=== PATIENT | female | born 1985 | race Caucasian/White ===

== ENCOUNTER 2019-07-31 11:44 | Emergency (ER) | payer BC ==
[~2019-07-31] VITALS: Ht 170.2 cm; Wt 99.8 kg
[2019-07-31 12:46] LABS: Source, Urine Clean Catch
[2019-07-31 12:51] LABS: Bilirubin, Urine Neg (Neg); Blood, Urine Neg (Neg); Glucose Qualitative, Urine Neg (Neg); Ketones, Urine Neg (Neg); Leukocyte Esterase, Urine 1+ (Neg); Nitrite, Urine Neg (Neg); Protein, Urine Neg (Neg); Specific Gravity, Urine 1.005 (1.003-1.022); Urobilinogen, Urine NORM (Normal)
[2019-07-31 13:03] LABS: BASOPHILS ABSOLUTE AUTO 0.04 K/mm3 (0.00-0.23); BASOPHILS PERCENT AUTO 1 % (0-2); EOSINOPHILS ABSOLUTE AUTO 0.03 K/mm3 (0.00-0.68); EOSINOPHILS PERCENT AUTO 1 % (0-6); Hematocrit 32.8 % (33.0-51.0); Hemoglobin 11.4 g/dL (11.5-16.0); IMMATURE GRAN ABSOLUTE AUTO 0.02 K/mm3 (0.00-0.10); IMMATURE GRAN PERCENT AUTO 0 % (0-1); LYMPHOCYTES ABSOLUTE AUTO 2.02 K/mm3 (0.84-5.20); LYMPHOCYTES PERCENT AUTO 36 % (21-46); MONOCYTES ABSOLUTE AUTO 0.43 K/mm3 (0.16-1.47); MONOCYTES PERCENT AUTO 8 % (4-13); Mean Corpuscular HGB 36.4 pg (26.0-34.0); Mean Corpuscular HGB Conc 34.8 g/dL (31.5-36.5); Mean Corpuscular Volume 105 fL (80-100); Mean Platelet Volume 12.3 fL (9.1-12.4); NEUTROPHILS ABSOLUTE AUTO 3.13 K/mm3 (1.96-9.15); NEUTROPHILS PERCENT AUTO 55 % (41-73); Platelet Count 178 K/mm3 (150-400); RDW Coefficient Variation 14.4 % (11.7-14.2); RDW Standard Deviation 55.7 fL (35.1-46.3); Red Blood Cell Count 3.13 M/mm3 (3.80-5.20); White Blood Cell Count 5.67 K/mm3 (4.00-11.30)
[2019-07-31 13:16] LABS: Appearance, Urine Clear (Clear); Color, Urine Yellow (P-Yellow)
[2019-07-31 13:17] LABS: White Blood Cells, Urine 0-2 /hpf (0-5)
[2019-07-31 13:18] LABS: Bacteria Few /hpf; Red Blood Cells, Urine 0-2 /hpf (0-2); Squamous Epithelial Cells Mod /hpf (Few)
[2019-07-31 13:31] LABS: Alanine Aminotransfer (ALT/SGP 161 U/L (12-78); Albumin, Blood 3.1 g/dL (3.4-5.0); Albumin/Globulin Ratio 0.8 (0.8-1.8); Alk Phos 229 U/L (50-136); Anion Gap 14 mmol/L (6-16); Aspartate Aminotrans (AST/SGOT 227 U/L (12-37); Bilirubin, Total 1.4 mg/dL (0.1-1.0); Blood Urea Nitrogen 7 mg/dL (8-24); Bun/Creatinine Ratio 12.8 (12.0-20.0); CO2, Blood 21 mmol/L (21-32); Calcium, Blood 8.6 mg/dL (8.5-10.1); Chloride, Blood 94 mmol/L (98-108); Creatinine, Blood 0.55 mg/dL (0.40-1.00); Globulin, Blood 3.9 g/dL (2.2-4.0); Glomerular Filtration Rate >60 (60-); Glucose, Blood 132 mg/dL (70-99); Potassium, Blood 3.3 mmol/L (3.5-5.5); Sodium, Blood 129 mmol/L (136-145)
== END 2019-07-31 13:55 | disposition home or self-care (01) ==
LOC: ER 11:44
PROVIDERS: Emergency Medicine
DX: R74.8 Abnormal levels of other serum enzymes (principal); E87.1 Hypo-osmolality and hyponatremia
CPT/HCPCS: 80053; 81001; 83735; 84436; 84443; 85025; 87077; 87086; 87186; 93005; 93010; 99283-25

== ENCOUNTER 2021-10-23 07:32 | Inpatient (IN) | payer OTHER ==
[~2021-10-23] VITALS: Ht 167.6 cm; Wt 110.0 kg
[2021-10-23 08:45] LABS: Albumin, Blood 2.2 g/dL (3.4-5.0); Albumin/Globulin Ratio 0.5 (0.8-1.8); Bilirubin, Total 14.3 mg/dL (0.1-1.0); Bun/Creatinine Ratio 9.8 (12.0-20.0); Calcium, Blood 7.5 mg/dL (8.5-10.1); Creatinine, Blood 0.51 mg/dL (0.40-1.00); Globulin, Blood 4.3 g/dL (2.2-4.0); Total Protein, Blood 6.5 g/dL (6.4-8.2)
[2021-10-23 09:35] LABS: Hematocrit 29.9 % (33.0-51.0); Mean Corpuscular Volume 97 fL (80-100); NRBC ABSOLUTE 0.05 K/mm3 (0.00-0.02); NRBC Auto 0.4 /100 WBC (0.0-0.2); Platelet Count 90 K/mm3 (150-400); RDW Coefficient Variation 21.8 % (11.7-14.2); Red Blood Cell Count 3.09 M/mm3 (3.80-5.20); White Blood Cell Count 13.55 K/mm3 (4.00-11.30)
[2021-10-23 09:41] LABS: Prothrombin Time Results >90.0 Sec (9.7-11.5)
[2021-10-23 09:43] LABS: International Normalized Ratio >10.00
[2021-10-23 09:57] LABS: BAND PERCENT MAN 10 % (0-8); BASOPHILS PERCENT MAN 0 % (0-2); EOSINOPHILS PERCENT MAN 0 % (0-6); LYMPHOCYTES ABSOLUTE MAN 1.08 K/mm3 (0.84-5.20); LYMPHOCYTES PERCENT MAN 8 % (21-46); MONOCYTES PERCENT MAN 3 % (4-13); NEUTROPHILS ABSOLUTE MAN 12.05 K/mm3 (1.96-9.15); SEG NEUTROPHILS PERCENT MAN 79 % (41-73); TOTAL CELLS COUNTED 100
[2021-10-23 10:30] LABS: Source, Urine Foley catheter
[2021-10-23 10:59] LABS: Base Excess Venous -7.9 mmol/L; Bicarbonate Venous 17.8 mmol/L (24.0-30.0); PCO2 Venous 35.5 mmHg (38-42); pH Blood Venous 7.32 (7.34-7.37)
[2021-10-23 11:00] LABS: Appearance, Urine Hazy (Clear); Blood, Urine 5+ (Neg); Color, Urine Amber (P-Yellow); Glucose Qualitative, Urine Neg (Neg); Ketones, Urine 2+ (Neg); Leukocyte Esterase, Urine 1+ (Neg); Nitrite, Urine Neg (Neg); Protein, Urine 2+ (Neg); Urobilinogen, Urine 3+ (Normal)
[2021-10-23 11:26] LABS: U Amphetamine Screen Not Detected; U Barbituate Screen Not Detected; U Benzodiazapine Screen Not Detected; U Buprenorphine Screen Not Detected; U Cannabinoids Screen Not Detected; U Cocaine Screen Not Detected; U Methadone Screen Not Detected; U Methamphetamine Screen Not Detected; U Opiates Screen Not Detected; U Oxycodone Screen Not Detected; U Phencyclidine Screen Not Detected; U Propoxyphene Screen Not Detected
[2021-10-23 11:28] LABS: Bilirubin, Urine 3+ (Neg)
[2021-10-23 11:44] LABS: Bacteria Many /hpf; Squamous Epithelial Cells Rare /hpf (Few); Transitional Epithelial Cells Mod /hpf (0-Rare)
[2021-10-23 11:46] LABS: Mucus Light (0-Heavy)
[2021-10-23 12:38] LABS: BASOPHILS ABSOLUTE AUTO 0.03 K/mm3 (0.00-0.23); BASOPHILS PERCENT AUTO 0 % (0-2); EOSINOPHILS ABSOLUTE AUTO 0.01 K/mm3 (0.00-0.68); EOSINOPHILS PERCENT AUTO 0 % (0-6); IMMATURE GRAN ABSOLUTE AUTO 0.23 K/mm3 (0.00-0.10); IMMATURE GRAN PERCENT AUTO 2 % (0-1); LYMPHOCYTES ABSOLUTE AUTO 0.76 K/mm3 (0.84-5.20); LYMPHOCYTES PERCENT AUTO 6 % (21-46); MONOCYTES ABSOLUTE AUTO 0.55 K/mm3 (0.16-1.47); MONOCYTES PERCENT AUTO 4 % (4-13); Mean Corpuscular Volume 99 fL (80-100); NEUTROPHILS ABSOLUTE AUTO 11.74 K/mm3 (1.96-9.15); NEUTROPHILS PERCENT AUTO 88 % (41-73); NRBC ABSOLUTE 0.03 K/mm3 (0.00-0.02); NRBC Auto 0.2 /100 WBC (0.0-0.2); Platelet Count 98 K/mm3 (150-400); RDW Coefficient Variation 21.7 % (11.7-14.2); RDW Standard Deviation 78.2 fL (35.1-46.3); Red Blood Cell Count 3.04 M/mm3 (3.80-5.20); White Blood Cell Count 13.32 K/mm3 (4.00-11.30)
[2021-10-23 14:59] LABS: Hematocrit 33.7 % (33.0-51.0); Hemoglobin 12.6 g/dL (11.5-16.0)
--- NOTE | 2021-10-23 16:24 | NUR ---
Spoke with fuel truck driver Stacey and discussed case. Pt has poor prognosis and family would benefit from supportive visit. Pt resting in bed and appears weak and lethargic. Pt also significantly jaundiced. Pt's spouse and sister at bedside. Offered therapeutic listening and validated concerns. Spouse Sadiq report he and Pt has 3 children at home all boys (8, 13, & 15). Provided emotional support as sister is tearful. Palliative Care will F/U for supportive visits.
[2021-10-23 18:01] LABS: Hematocrit 25.1 % (33.0-51.0)
--- NOTE | 2021-10-23 18:26 | NUR ---
PT ARRIVAL.... PT ARRIVED ON THE UNIT AT 1253 THE PT WAS INTUBATED BUT NOT SEDATED D/T HYPOTENSION, THE PT WAS STARTED ON LEVOPHED UPON ARRIVAL TO THE UNIT VIA 18 IN THE LAC AND 3% SAILINE IN THE 18 RAC. THE PT'S CBG WAS CHECKED AND NOTED TO BE 30, PROVIDER AWARE AND 500MLS OF D5 WAS GIVEN. AND THE PT WAS STARTED ON D10 AT 50MLS/HR. ATTEMPTS TO PLACE A PICC LINE WERE DONE BY THE INSIDE SALES TERRITORY MANAGER BUT NOT SUCCESSFUL, A RIGHT FEMORAL LINE WAS PLACED BY THE ICU PROVIDER. THE PT'S LEVOPHED WAS TITRATED UP TO 12MCG/MIN TO KEEP MAPS >60. AT APROX 1440 THE PT WAS EXTUBATED TO 3L NC PER DR. DEJESUS. THE PT'S L/S CONTINUE TO BE COARSE T/O AND DIM IN THE BASES. THE PT'S WAS AT THE BEDSIDE SINCE THE PT'S ARRIVAL TO THE UNIT. THE PT'S LEVOPHED HAS BEEN TITRATED FROM 12MCG/MIN TO 8MCG/MIN WITH THE PT'S MAPS >60. THE PT'S BOSWELL IS PATENT AND DRAINING TO GRAVITY. PT HAS NOT HAD A BM THIS SHIFT. WHILE THE PT WAS ON THE BED PLUMMER IN AN ATTEMPT TO HAVE A BM THE PT'S HEMORRHOIDS STARTED TO BLEED A VERY LARGE AMOUNT OF GAVIN RED BLOOD. PROVIDER IS AWARE AND WILL RECHECK H&H LATER TONIGHT. REPORT GIVEN TO ONCOMING RN.
[2021-10-23 18:34] LABS: Anion Gap 19 mmol/L (6-16); Blood Urea Nitrogen 5 mg/dL (8-24); Bun/Creatinine Ratio 5.8 (12.0-20.0); CO2, Blood 15 mmol/L (21-32); Calcium, Blood 7.1 mg/dL (8.5-10.1); Chloride, Blood 82 mmol/L (98-108); Creatinine, Blood 0.86 mg/dL (0.40-1.00); Glomerular Filtration Rate 89 (60-); Glucose, Blood 140 mg/dL (70-99); Potassium, Blood 3.9 mmol/L (3.5-5.5); Sodium, Blood 116 mmol/L (136-145)
--- NOTE | 2021-10-23 20:00 | NUR ---
ASSUMED CARE OF PT AT 1915. REPORT RECEIVED AT BEDSIDE. PT PRESENTS IN BED. SLOW AND SOMEWHAT SLURRED SPEECH. AT BEDSIDE AND IS VERY ATTENTIVE TO PT'S NEEDS. LEVOPHED FOR BP SUPPORT. 3 PERCENT SALINE AT 50 ML/HR. D10W AT 50 ML/HOUR. PT HAS DESTINEE COLORED URINE OUTPUT. OXYGEN ON AT 3 L/M TO MAINTAIN SATURATIONS > 90 PERCENT. PT DOES COMPLAIN OF HAVING SOME SORENESS FROM INTUBATION. QUAD LUMEN CVC IN RIGHT GROIN. PT VERBALIZES THAT SHE HAS BEEN HAVING SOME HALLUCINATIONS. CLAIMS TO SEE PEOPLE CLIMBING UP THE DUFF. DOES ACKNOWLEDGE THAT THIS IS NOT FACTUAL. WILL REVIEW CHART AND PLAN OF CARE FOR THIS PT.
[2021-10-23 20:33] LABS: Ethanol (Alcohol), Blood, Med <3 mg/dL
--- NOTE | 2021-10-24 | NUR ---
HAVE BEEN IN PROCESS OF DECREASING LEVOPHED. PT MAINTAINS MAP > 65. HAVE MEDICATED PT ONCE WITH 25 MCG'S FENTANYL FOR ABDOMINAL AND BACK PAIN. HAVE PHONED DR DEJESUS WITH NA LEVEL. HAVE STOPPED THE 3 PERCENT SALINE PER ORDERS. WILL CONTINUE TO MONITOR. PT HAS PASSED LIQUID BLOODY STOOL. DR DEJESUS AWARE.
[2021-10-24 01:42] LABS: Influenza A, PCR NEGATIVE (NEGATIVE); Influenza B, PCR NEGATIVE (NEGATIVE); Resp Syncytial Virus, PCR NEGATIVE (NEGATIVE); SARS-Cov-2 (COVID-19) PCR, MMC NEGATIVE (NEGATIVE)
[2021-10-24 02:22] LABS: BASOPHILS ABSOLUTE AUTO 0.01 K/mm3 (0.00-0.23); BASOPHILS PERCENT AUTO 0 % (0-2); EOSINOPHILS ABSOLUTE AUTO 0.01 K/mm3 (0.00-0.68); EOSINOPHILS PERCENT AUTO 0 % (0-6); Hematocrit 20.2 % (33.0-51.0); IMMATURE GRAN ABSOLUTE AUTO 0.11 K/mm3 (0.00-0.10); IMMATURE GRAN PERCENT AUTO 1 % (0-1); LYMPHOCYTES ABSOLUTE AUTO 0.76 K/mm3 (0.84-5.20); LYMPHOCYTES PERCENT AUTO 7 % (21-46); MONOCYTES ABSOLUTE AUTO 0.65 K/mm3 (0.16-1.47); MONOCYTES PERCENT AUTO 6 % (4-13); Mean Corpuscular Volume 98 fL (80-100); Mean Platelet Volume 12.5 fL (9.1-12.4); NEUTROPHILS ABSOLUTE AUTO 9.17 K/mm3 (1.96-9.15); NEUTROPHILS PERCENT AUTO 86 % (41-73); NRBC ABSOLUTE 0.02 K/mm3 (0.00-0.02); NRBC Auto 0.2 /100 WBC (0.0-0.2); Platelet Count 78 K/mm3 (150-400); RDW Coefficient Variation 21.8 % (11.7-14.2); RDW Standard Deviation 77.1 fL (35.1-46.3); Red Blood Cell Count 2.06 M/mm3 (3.80-5.20); White Blood Cell Count 10.71 K/mm3 (4.00-11.30)
[2021-10-24 02:38] LABS: Albumin, Blood 3.2 g/dL (3.4-5.0); Albumin/Globulin Ratio 1.1 (0.8-1.8); Bilirubin, Total 15.4 mg/dL (0.1-1.0); Bun/Creatinine Ratio 7.1 (12.0-20.0); Calcium, Blood 7.8 mg/dL (8.5-10.1); Creatinine, Blood 0.56 mg/dL (0.40-1.00); Globulin, Blood 2.9 g/dL (2.2-4.0); Potassium, Blood 3.2 mmol/L (3.5-5.5); Total Protein, Blood 6.1 g/dL (6.4-8.2)
[2021-10-24 02:50] LABS: Prothrombin Time Results >90.0 Sec (9.7-11.5)
[2021-10-24 02:52] LABS: International Normalized Ratio >10.00
--- NOTE | 2021-10-24 06:30 | NUR ---
CALL MADE TO DR DEJESUS SEVERAL TIMES THIS NIGHT WITH VALUES FROM LABS DRAWN. PT HAS BEGUN FIRST OF TWO UNITS PRBC'S. TEACHING DONE. PT HAS BEEN AWAKE THE ENTIRE SHIFT. HAVE ENCOURAGED PT TO REST. NO S/S ADVERSE REACTIONS TO ANTIBIOTIC THERAPY TO NOTE. LEVOPHED HAS BEEN TITRATED TO OFF. URINE OUTPUT WITH DARK DESTINEE APPEARANCE. PT REMAINS MILDLY DISORIENTED AT TIMES. WILL CONTINUE TO MONITOR PT, AND WILL REPORT OFF TO ONCOMING RN.
--- NOTE | 2021-10-24 08:45 | NUR ---
AM NOTE... ASSUMED CARE OF PT AT 0700, THE PT IS A&Ox3 WITH SOME FORGETFULNESS, THE PT ALSO BECOMES FIXATED ON SOME THINGS AND STRESSES AND CONSTANTLY ASKS ABOUT THEM LIKE THE PULSE OX ON HER FINGER AND WANTING IT MOVED. THE PT IS OFF PRESSORS SINCE THE START OF THIS SHIFT WITH MAPS >65. THE PT IS IN SINUS TACH IN THE LOW 100'S, THE PT HAS TRACE EDEMA NOTED TO HER LLE AND DEPENDENT EDEMA TO HER BILATERAL HANDS. THE PT'S BLE ARE COOL AND MOTTLED. THE PT'S SKIN AND SCLERA ARE JANDICED. THE PT IS ON 4L NC WITH O2 SATS >95% THIS WAS TITRATED DOWN TO 2L NC WITH O2 SATS >90% L/S CLEAR T/O DIM IN THE BASES. PT'S BT ARE PRESENT AND HYPOACTIVE, ABD IS DISTENDED AND TENDER TO PALPATION TO THE RUQ AND LUQ. THE PT'S BOSWELL IS PATENT AND DRAINING ORANGE URINE TO GRAVITY, PER REPORT THE PT HAD SOME MAROON STOOLS LAST NIGHT, THE PT IS CURRENTLY GETTING A TRANSFUSION OF PRBCs. AT APROX 0830 THE PT STARTED TO C/O OF INCREASED SOB, THE PT'S L/S WERE NOW NOTED TO BE COARSE WITH SOME CRACKLES IN THE BASES, PROVIDER IS AWARE. WILL CONTINUE TO MONITOR.
[2021-10-24 10:33] LABS: Hematocrit 21.7 % (33.0-51.0)
--- NOTE | 2021-10-24 14:54 | NUR ---
PT UPDATE.... THE PT HAS BECOME MORE ANXIOUS THE SHIFT HAS GONE ON, THE PT'S HR HAS TRENDED UP FROM THE 90'S TO LOW 100'S TO THE 120'S-130'S WITH ANY ACTIVITY THE PT'S BP HAS BEEN STABLE. THE PT HAS GOTTEN 2 UNITS OF FFP AND 1 UNIT OF CRYO, THE PT CONTINUES ON 2L NC WITH O2 SATS >90% L/S THIS AFTERNOON ARE NOTED TO BE COARSE CRACKLES T/O. RR IS IN THE 20'S. THE PT HAS HAD 2 BLOODY STOOLS THE LAST STOOL WAS NOTED TO BE MORE BLACK/MAROON THAN GAVIN RED. THE HAS ALSO BEEN HAVING AUDITORY HALLUCINATIONS PER THE PT SHE KEEPS HEARING A CERTAIN SONG PLAYING, SHE IS CONVINCED THAT THE PT IN THE NEXT ROOM HAS A RADIO AND KEEPS REWINDING THE SONG. PER THE PT'S SISTER SRAVANTHI THE PT HAS BEEN HAVING HALLUCINATIONS FOR THE "LAST 2 WEEKS AT HOME." BOTH THE PT AND HER STATE SHE STOPPED DRINKING "LAST MONTH." THE PT WAS STARTED ON CIWA PROTOCOL AND GIVEN LIBRIUM. WILL CONTINUE TO MONITOR.
[2021-10-24 14:56] LABS: Albumin, Blood 3.4 g/dL (3.4-5.0); Albumin/Globulin Ratio 1.2 (0.8-1.8); Bilirubin, Total 16.9 mg/dL (0.1-1.0); Bun/Creatinine Ratio 10.5 (12.0-20.0); Calcium, Blood 9.3 mg/dL (8.5-10.1); Creatinine, Blood 0.48 mg/dL (0.40-1.00); Globulin, Blood 2.9 g/dL (2.2-4.0); Potassium, Blood 3.1 mmol/L (3.5-5.5); Total Protein, Blood 6.3 g/dL (6.4-8.2)
[2021-10-24 14:57] LABS: Vancomycin, Trough 29.1 ug/mL (5.0-10.0)
[2021-10-24 18:17] LABS: Hematocrit 22.3 % (33.0-51.0)
[2021-10-24 18:23] LABS: Hemoglobin 8.7 g/dL (11.5-16.0)
--- NOTE | 2021-10-24 18:40 | NUR ---
SHIFT SUMMARY.... THE PT HAS CONTINUED TO BECOME MORE CONFUSED T/O THE SHIFT, THE PT WAS STARTED ON CIWA PROTOCOL AND MEDICATED PER EMAR WITH ATIVAN AND LIBRIUM. THE PT'S HR CONTINUES TO BE IN THE 120'S-130'S AND THE PT'S BP HAS BEEN STABLE. THE PT'S TMAX HAS BEEN 99.7. THE PT HAS BECOME SO CONFUSED SHE HAS NOT BEEN ABLE TO FOLLOW DIRECTIONS AND THINKS SHE IS CHEWING GUM. THE PT'S AIR WAY HAS OBSTRUCTED D/T THIS "GUM CHEWING" AND THE PT'S MOUTH BREATHING, PROVIDER IS AWARE AND ORDERS OBTAINED FOR A BIPAP/CPAP TO BE AT THE BEDSIDE. THE PT HAS BEEN ON 2-3L NC WITH O2 SATS >90% THE PT'S L/S THIS EVENING COARSE RHONCHI T/O AND DIM IN THE BASES. THE PT IS MORE JAUNDICED THAN SHE WAS DURING THIS FIRST ASSESSMENT THIS AM. THE PT'S BOSWELL DRAINED TEA COLORED URINE TO GRAVITY. THE PT'S HAS BEEN AT THE BEDSIDE MOST OF THIS SHIFT. HE AND THE FAMILY HAS BEEN UPDATED ON THE PT'S CONDITON AND POOR PROGNOSIS PER THE PROVIDERS INVOLVED IN HER CARE. PALLIATIVE CARE CONSULTED AND NOTIFIED. CALL LIGHT IN REACH WILL CONTINUE TO MONITOR.
--- NOTE | 2021-10-24 20:00 | NUR ---
ASSUMED CARE OF PT AT 1915. REPORT RECEIVED AT BEDSIDE. PT'S AND FAMILY AT BEDSIDE. LEAVES ROOM IN TEARS REPORT WAS BEING GIVEN. , JOSI, RETURNS TO ROOM AND IS COMFORTED BY FAMILY AND THIS RN. ALLOWED FAMILY TO ASK QUESTIONS. PT MOVING FREQUENTLY IN BED. HAS HALLUCINATIONS AND HAS BEEN 'PICKING AT THE AIR' PT ALSO MOVES HER LEGS TO THE LEFT SIDE OF THE BED TO TRY TO GET OUT OF BED. PT REPOSITIONED. WILL REVIEW CHART AND PLAN OF CARE FOR THIS PT.
--- NOTE | 2021-10-24 23:20 | NUR ---
CALL RECEIVED FROM DR DEJESUS WHO INDICATES THAT [facility] HAS ACCEPTED PT AND ARE AWAITING AN AVAILABLE BED. HAVE JUST RECEIVED A PHONE CALL FROM [facility] WITH BED ASSIGNMENT. DID CALL DR DEJESUS TO INFORM HIM OF TRANSFER. SPOKE WITH ONLINE PROGRAM COORDINATOR ADDIE GARCES. INFORMED PT'S OF TRANSFER. HAVE MEDICATED PT WITH 2MG ATIVAN TWICE FOR INCREASING CIWA.
--- NOTE | 2021-10-25 00:40 | NUR ---
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 JOSI PT'S WALKS OUT WITH PT AND CREW TO OUTSIDE. PT PREMEDICATED FOR THE FLIGHT WITH 2 MG ATIVAN. PT LEAVES UNIT IN STABLE CONDITION.
[2021-10-25 07:08] LABS: HBSAG SCREEN Negative (Negative); HCV AB <0.1 (0.0-0.9); HEP A AB, IGM Negative (Negative); HEP B CORE AB, IGM Negative (Negative)
[2021-10-25 12:08] LABS: EBV AB VCA, IGM <36.0 U/mL (0.0-35.9)
[2021-10-28 19:09] LABS: VARICELLA ZOSTER IGG 1712 index (Immune >165)
== END 2021-10-25 00:30 | disposition short-term general hospital (02) | DRG 433 ==
LOC: ER 07:32 → ICUW 10:22 → ICUE 10:22
PROVIDERS: Internal Medicine; Internal Medicine Critical Care Medicine; Nurse Practitioner Acute Care; Physician Assistant; Student in an Organized Health Care Education/Training Program; ADMIT Internal Medicine
PROC: 3E033XZ Introduction of Vasopressor into Peripheral Vein, Percutaneous Approach (ICD-10-PCS; principal; 2021-10-23)
PROC: 06HY33Z Insertion of Infusion Device into Lower Vein, Percutaneous Approach (ICD-10-PCS; 2021-10-23)
DX: K70.10 Alcoholic hepatitis without ascites (principal); R65.10 Systemic inflammatory response syndrome (SIRS) of non-infectious origin without acute organ dysfunction; D68.9 Coagulation defect, unspecified; E87.1 Hypo-osmolality and hyponatremia; K70.40 Alcoholic hepatic failure without coma; G40.409 Other generalized epilepsy and epileptic syndromes, not intractable, without status epilepticus; F10.20 Alcohol dependence, uncomplicated; I95.9 Hypotension, unspecified; K70.30 Alcoholic cirrhosis of liver without ascites; Z88.1 Allergy status to other antibiotic agents; Z88.0 Allergy status to penicillin
CPT/HCPCS: 0241U; 31500; 36415; 36430; 36556; 51702; 70450; 71045; 74177; 80048; 80053; 80074; 80202; 81001; 81025; 82140; 82272; 82330; 82533; 82803; 82947; 83605; 83690; 83735; 83880; 83930; 83935; 84100; 84295; 84300; 84443; 85014; 85018; 85025; 85379; 85384; 85610; 85730; 86644; 86645; 86664; 86665; 86696; 86787; 86850; 86900; 86901; 86920; 87040; 87077; 87086; 87186; 93005; 93010; 94002; 94640; 94660; 94664; 94760; 94762; 96361-59; 96365-59; 96375-59; 99285-25; A9270; C1751; C9113; G0480; J0132; J0330; J0692; J0696; J2060; J2405; J2704; J3010; J3370; J3411; J3430; J3480; J7030; J7040; J7060; J7070; P9012; P9016; P9046; P9059; Q9967